=== PATIENT | female | born 1955 | race Two or more races ===

== ENCOUNTER 2019-06-25 09:30 | Emergency (ER) | payer SELFPAY ==
--- NOTE | 2019-06-25 10:16 | UC ---
HPI Febrile Illness - HPI Summary HPI Summary: 63-year-old non-Malian speaking female who has her daughter as ammunition storekeeper. Language versus were offered by the nursing staff well as myself and they declined. The daughter is fluent in [place]ian. This patient has been having fever over the past 3 days and fatigue. She's had head congestion and runny nose. Denies any cough. Denies any nausea vomiting or diarrhea. Denies any urinary symptoms. She states occasionally her feet will have edema. - History of Current Complaint Chief Complaint: UCGeneralIllness Time Seen by Provider: 06/25/19 09:55 Hx Obtained From: Family/Group Home Counselor Onset/Duration: Started Days Ago Timing: Intermittent Initial Severity: Mild Current Severity: Mild Pain Intensity: 0 Aggravating Factors: Nothing Alleviating Factors: Nothing Associated Signs and Symptoms: Other: - Runny nose. - Allergy/Home Medications Allergies/Adverse Reactions: Allergies Allergy/AdvReac Type Severity Reaction Status Date / Time No Known Allergies Allergy Verified 06/25/19 09:47 Home Medications: Home Medications Acetaminophen TAB* [Tylenol TAB*] 325 mg PO Q4H PRN 06/25/19 [History Confirmed 06/25/19] Telmisartan/Amlodipine [Telmisartan/Amlodipine 40-5 mg] 1 tab PO QAM 06/25/19 [ History Confirmed 06/25/19] hydroCHLOROthiazide [Hydrochlorothiazide] 12.5 mg PO QAM 06/25/19 [History Confirmed 06/25/19] PMH/Surg Hx/FS Hx/Imm Hx Previously Healthy: Yes Cardiovascular History: Hypertension, Other - No history of heart murmur - Surgical History Surgical History: None - Family History Known Family History: Positive: Non-Contributory - Social History Lives: With Family Alcohol Use: None Substance Use Type: None Smoking Status (MU): Never Smoked Tobacco Review of Systems All Other Systems Reviewed And Are Negative: Yes Constitutional: Positive: Fever - Fever over the past 3 days. ENT: Positive: Nasal Discharge - Patient has a runny nose over the past 2 days and head congestion. Motor: Positive: Other - Patient has been feeling fatigue over the past few days Is Patient Immunocompromised?: No Physical Exam Triage Information Reviewed: Yes Appearance: Well-Appearing, No Pain Distress, Well-Nourished Vital Signs: Initial Vital Signs Temp 98.5 F 06/25/19 09:45 Pulse 80 06/25/19 09:45 Resp 18 06/25/19 09:45 BP 137/79 06/25/19 09:45 Pulse Ox 100 06/25/19 09:45 Vital Signs Reviewed: Yes Eyes: Positive: Conjunctiva Clear ENT: Positive: Pharynx normal, Nasal drainage, TMs normal - Clear nasal coryza, Uvula midline Neck: Positive: Supple, Nontender, No Lymphadenopathy Respiratory: Positive: Lungs clear, Normal breath sounds, No respiratory distress, No accessory muscle use Cardiovascular: Positive: RRR, Pulses Normal, Murmur:Sys:Grade _?_/ - IV/ systolic murmur (no murmur HX) Musculoskeletal Exam: Normal Neurological Exam: Normal Psychological Exam: Normal Skin Exam: Normal Course/Dx - Course Course Of Treatment: Chest x-ray:FINDINGS: CARDIOMEDIASTINAL SILHOUETTE: The cardiomediastinal silhouette is normal. NIKOLAI: The nikolai are normal. PLEURA: The costophrenic angles are sharp. No pleural abnormalities are noted. LUNG PARENCHYMA: The lungs are clear. ABDOMEN: The upper abdomen is clear. There is no subphrenic gas. BONES AND SOFT TISSUES: No bone or soft tissue abnormalities are noted. OTHER: None. IMPRESSION: NO ACTIVE CARDIOPULMONARY DISEASE. Urinalysis: 1+ protein otherwise negative. At this point time I believe the patient has a viral upper respiratory illness. She does need a referral and to establish primary care and a pamphlet for the physician referral Center was given to the patient and family. I encouraged to make the appointment and establish care today because the patient eventually will need to see a office nurse practitioner. If she develops any chest pain, difficulty breathing, feeling like she going to pass out she needs to go to the emergency room for further evaluation. The family is agreeable to this. The patient did have an incident where she sustained a sterile needle stick to both thumbs when she was trying to open the urine container. The nurses visualized the wound and gave her a Band-Aid. - Diagnoses Provider Diagnosis: URI (upper respiratory infection) Is Visit Related: No Discharge ED - Sign-Out/Discharge Documenting (check all that apply): Patient Departure All imaging exams completed and their final reports reviewed: Yes - Discharge Plan Condition: Stable Disposition: HOME Patient Education Materials: Upper Respiratory Infection (DC), Heart Murmur (ED ) Referrals: [facility] [Outside] No Primary Care Phys,NOPCP [Primary Care Provider] - Additional Instructions: Increase fluids, Tylenol every 4 hours for fever as needed. Establish care with a primary care provider as soon as possible because you need follow-up regarding the new onset heart murmur. Go to the emergency room if you develop any shortness of breath, chest pain, difficulty breathing or feeling like your going to pass out. - Billing Disposition and Condition Condition: STABLE Disposition: Home
== END 2019-06-25 11:15 | disposition home or self-care (01) ==
LOC: UCCORT 09:30
DX: J06.9 Acute upper respiratory infection, unspecified (principal); I10 Essential (primary) hypertension
CPT/HCPCS: 71046; 81003; 99201; G0463